=== PATIENT | male | born 2000 | race Caucasian/White ===

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

== ENCOUNTER 2020-04-26 11:46 | Day surgery (SDC) | payer BC ==
[~2020-04-26] VITALS: Ht 185.4 cm; Wt 68.0 kg
--- NOTE | ~2020-04-26 | O ---
[facility] [place] [address] OPERATIVE REPORT Name: LEVON ROBIN Room #: [facility]..#: [id number] Admission: 04/26/20 Attend Phys: Dustin Carpio MD Discharge: 04/26/20 Date of : 00 Report #: [id number] THIS REPORT FOR: cc: Shree Granado,Dustin Tompkins MD ~ CC: Shree Carpio DATE OF SERVICE: 04/26/2020 PREOPERATIVE DIAGNOSIS: Wound dehiscence in the sacrum after pilonidal cystectomy. POSTOPERATIVE DIAGNOSIS: Wound dehiscence in the sacrum after pilonidal cystectomy. PROCEDURE PERFORMED: Debridement of wound dehiscence with closure. ANESTHESIA: General prone position. SURGEON: Dustin Carpio MD COMPLICATIONS: None. ESTIMATED BLOOD LOSS: 5 mL. PROCEDURE NOTE: With the patient in the prone position under general anesthesia, the sacral area was prepped with Betadine and draped in sterile fashion. Timeout was performed. IV antibiotic was administered. The patient has loose __ tissue within the wound. This is not really granulation tissue on the wall, but debris material. The hair was trimmed first before the prep. The curette and the scalpel were used to scrape this off. Cautery was used for hemostasis. Irrigation was performed. The wound is clean. After placing interrupted 3-0 nylon sutures over the incision x 5. Tisseel was placed in the wound bed and the sutures were tied down. The patient tolerated the procedure well, 4 x 4, OpSite used for dressing. By: Dustin Carpio MD /nt
[2020-04-26 12:39] VITALS: BP 137/71
[2020-04-26] MEDS ORDERED: NORCO 5-325 TA1 EAC1 PO (14:57)
[2020-04-26 15:41] VITALS: BP 137/71
== END 2020-04-26 16:35 | disposition home or self-care (01) ==
LOC: OR 11:46 → TBA 11:46 → OR 15:23
DX: T81.31XA Disruption of external operation (surgical) wound, not elsewhere classified, initial encounter (principal); Z98.890 Other specified postprocedural states; Z88.8 Allergy status to other drugs, medicaments and biological substances; Y83.8 Other surgical procedures as the cause of abnormal reaction of the patient, or of later complication, without mention of misadventure at the time of the procedure; Z11.59 Encounter for screening for other viral diseases
CPT/HCPCS: 50010; 50101; 50386; 50403; 51436; 56527; 62110; 62900; 70005

== ENCOUNTER → 2020-05-14 | Outpatient (CLI) | payer BC | LOC: HYPER 09:43 | PROVIDERS: ATTEND Emergency Medicine Emergency Medical Services | DX: T81.41XA Infection following a procedure, superficial incisional surgical site, initial encounter (principal); L05.02 Pilonidal sinus with abscess; Y83.8 Other surgical procedures as the cause of abnormal reaction of the patient, or of later complication, without mention of misadventure at the time of the procedure; Y92.89 Other specified places as the place of occurrence of the external cause ==

== ENCOUNTER → 2020-05-24 | Outpatient (CLI) | payer BC | LOC: HYPER 10:37 | PROVIDERS: ATTEND Emergency Medicine Emergency Medical Services | DX: T81.41XD Infection following a procedure, superficial incisional surgical site, subsequent encounter (principal); L05.02 Pilonidal sinus with abscess; Y83.8 Other surgical procedures as the cause of abnormal reaction of the patient, or of later complication, without mention of misadventure at the time of the procedure ==

== ENCOUNTER → 2020-06-04 | Outpatient (CLI) | payer BC | LOC: HYPER 08:39 | PROVIDERS: ATTEND Emergency Medicine | DX: T81.41XD Infection following a procedure, superficial incisional surgical site, subsequent encounter (principal); L05.02 Pilonidal sinus with abscess; Y83.1 Surgical operation with implant of artificial internal device as the cause of abnormal reaction of the patient, or of later complication, without mention of misadventure at the time of the procedure ==

== ENCOUNTER → 2020-06-11 | Outpatient (CLI) | payer BC | LOC: HYPER 09:28 | PROVIDERS: ATTEND Emergency Medicine Emergency Medical Services | DX: T81.41XD Infection following a procedure, superficial incisional surgical site, subsequent encounter (principal); L05.02 Pilonidal sinus with abscess; Y83.8 Other surgical procedures as the cause of abnormal reaction of the patient, or of later complication, without mention of misadventure at the time of the procedure ==

== ENCOUNTER → 2020-06-18 | Outpatient (CLI) | payer BC | LOC: HYPER 08:08 | PROVIDERS: ATTEND Emergency Medicine | DX: T81.41XD Infection following a procedure, superficial incisional surgical site, subsequent encounter (principal); L05.02 Pilonidal sinus with abscess; Y83.8 Other surgical procedures as the cause of abnormal reaction of the patient, or of later complication, without mention of misadventure at the time of the procedure ==

== ENCOUNTER → 2020-06-28 | Outpatient (CLI) | payer BC | LOC: HYPER 09:40 | PROVIDERS: ATTEND Emergency Medicine Emergency Medical Services | DX: T81.41XD Infection following a procedure, superficial incisional surgical site, subsequent encounter (principal); L05.02 Pilonidal sinus with abscess; Y83.8 Other surgical procedures as the cause of abnormal reaction of the patient, or of later complication, without mention of misadventure at the time of the procedure ==

== ENCOUNTER → 2020-07-05 | Outpatient (CLI) | payer BC | LOC: HYPER 09:20 | PROVIDERS: ATTEND Emergency Medicine Emergency Medical Services | DX: T81.41XD Infection following a procedure, superficial incisional surgical site, subsequent encounter (principal); L05.02 Pilonidal sinus with abscess; Y83.8 Other surgical procedures as the cause of abnormal reaction of the patient, or of later complication, without mention of misadventure at the time of the procedure ==